=== PATIENT | female | born 1950 | race Caucasian/White ===

== ENCOUNTER → 2021-06-04 15:39 | Outpatient (CLI) | payer MEDICARE, OTHER, SELFPAY ==
--- NOTE | 2021-06-04 15:00 | EMB_PTH ---
PATIENT: SMILEY MADDEN LOC: [facility] U#:[id number] AGE/SX: 75/F ROOM: RE06/04/[address]: Dr. Jay Abbasi MD : 1950 BED: DIS: SPEC #: [id number] RECD: 06/04/21 16:13 STATUS: SEAMUS WALTON #: [id number] DELON: 06/04/21 15:[address]: Jay Abbasi DEPT: SURGICAL PATHOLOGY RECD BY: Remberto Bang ENTERED: 06/05/21 16:43 SP TYPE: ENDOM BX/C YVONNE DR: Dr. Osman Betancourt MD Tissues: Endometrium, NOS Procedures: Surgery Specimen Level IV HEADER OPERATION: Endometrial biopsy PRE-OP DIAGNOSIS: D25.9 TISSUE SUBMITTED: Endometrium MICROSCOPIC DIAGNOSIS Endometrial biopsy: Focal simple cystic endometrial hyperplasia without atypia. LEV:rafia 06/08/2021 COMMENT Correlation with clinical findings and appropriate follow up are necessary. Case has been reviewed in consultation with Dr. Win who concurs with the above diagnosis. IDC:AM MICROSCOPIC DESCRIPTION Slides are reviewed. GROSS DESCRIPTION Received in fixative is one container labeled with the patient's name and designated endometrial biopsy. The specimen consists of multiple irregular and elongated fragments of red-hussein soft tissue that in aggregate measure 2.5 x 1 x 0.1 cm. The specimen is totally submitted in one cassette. / AM:rafia 06/07/21 TC:5 CPT: 22234
== END ==
PROVIDERS: PCP Family Medicine; Visit Provider Obstetrics & Gynecology
DX: D25.9 Leiomyoma of uterus, unspecified (principal); N85.01 Benign endometrial hyperplasia
CPT/HCPCS: 88305

== ENCOUNTER 2021-10-26 13:58 | Outpatient (CLI) | payer MEDICARE, OTHER, SELFPAY ==
--- NOTE | 2021-10-26 13:45 | EMB_PTH ---
PATIENT: SMILEY MADDEN LOC: [facility] U#:[id number] AGE/SX: 71/F ROOM: RE10/26/[address]: Dr. Jay Abbasi MD : 1950 BED: DIS: 10/26/2021 SPEC #: [id number] RECD: 10/27/21 08:42 STATUS: SEAMUS WALTON #: [id number] DELON: 10/26/21 13:[address]: Jay Abbasi DEPT: SURGICAL PATHOLOGY RECD BY: Jessika Davalos ENTERED: 10/27/21 08:43 SP TYPE: ENDOM BX/C YVONNE DR: Dr. Osman Betancourt MD Tissues: Endometrium, NOS Procedures: Surgery Specimen Level IV HEADER OPERATION: Endometrial biopsy PRE-OP DIAGNOSIS: Simple hyperplasia TISSUE SUBMITTED: Endometrial biopsy MICROSCOPIC DIAGNOSIS Endometrial biopsy: Fragments of benign endometrial epithelium. Fragments of hyalinized tissue and blood clots. Negative for hyperplasia. See comment. LEV:rafia 10/28/2021 COMMENT Correlation with clinical findings and appropriate follow up are necessary. Please make reference to previous specimen ([id number]) endometrial biopsy with diagnosis of ?focal simple cystic endometrial hyperplasia without atypia.? MICROSCOPIC DESCRIPTION Slides are reviewed. GROSS DESCRIPTION Received in fixative is one container labeled with the patient's name and designated EMB. The specimen consists of multiple fragments of hemorrhagic soft tissue that in aggregate measure 2 x 1 x 0.1 cm. The specimen is totally submitted in one cassette. / SJ:rg 11/24/2021 TC:5 CPT: 82524
== END 2021-10-26 23:59 | disposition home or self-care (01) ==
LOC: LABSPEC 14:03
PROVIDERS: PCP Family Medicine; Visit Provider Obstetrics & Gynecology
DX: N85.01 Benign endometrial hyperplasia (principal)
CPT/HCPCS: 88305

== ENCOUNTER → 2022-05-10 | Outpatient (CLI) | payer MEDICARE, OTHER, SELFPAY ==
--- NOTE | 2022-05-10 | EMB_PTH ---
PATIENT: SMILEY MADDEN LOC: [facility] U#:[id number] AGE/SX: 71/F ROOM: RE05/10/[address]: Dr. Jay Abbasi MD : 1950 BED: DIS: 05/10/2022 SPEC #: [id number] RECD: 05/11/22 11:40 STATUS: SEAMUS RENahed #: [id number] DELON: 05/10/22 00:[address]: Jay Abbasi DEPT: SURGICAL PATHOLOGY RECD BY: Felipe Traylor ENTERED: 05/11/22 11:40 SP TYPE: ENDOM BX/C YVONNE DR: Dr. Osman Betancourt MD Tissues: Endometrium, NOS Procedures: Surgery Specimen Level IV HEADER OPERATION: Endometrial biopsy PRE-OP DIAGNOSIS: PMB N95.0 TISSUE SUBMITTED: Endometrial biopsy MICROSCOPIC DIAGNOSIS Endometrium, biopsy: Strips of benign superficial endometrium. AM:rafia 05/12/2022 MICROSCOPIC DESCRIPTION Slides are reviewed. GROSS DESCRIPTION Received in fixative is one container labeled with the patient's name and designated endometrial biopsy. The specimen consists of multiple irregular and elongated fragments of light to dark hussein soft tissue that in aggregate measure 2.5 x 2.5 x 0.2 cm. The specimen is totally submitted in one cassette. / AM:rafia 05/11/2022 TC:5 CPT: 79659
== END | disposition home or self-care (01) ==
LOC: LABSPEC 14:45
PROVIDERS: PCP Family Medicine; Visit Provider Obstetrics & Gynecology
DX: N95.0 Postmenopausal bleeding (principal)
CPT/HCPCS: 88305